=== PATIENT | female | born 1950 | race Caucasian/White ===

== ENCOUNTER → 2022-06-10 | Outpatient (CLI) | payer MEDICARE, OTHER ==
[~2022-06-10] MED LIST: ROSU10TA6; VALS1TAB66
== END ==
LOC: M PLARAD 13:41
PROVIDERS: ATTEND Internal Medicine Medical Oncology
DX: C18.4 Malignant neoplasm of transverse colon (principal)
CPT/HCPCS: 78815; A9552

== ENCOUNTER → 2022-06-19 | Outpatient (CLI) | payer MEDICARE, OTHER | LOC: M WUC 15:50 | PROVIDERS: ATTEND Nurse Practitioner Family | DX: M54.50 Low back pain, unspecified (principal); R29.6 Repeated falls ==